=== PATIENT | male | born 1980 | race Caucasian/White ===

== ENCOUNTER 2017-03-09 06:57 | Emergency (ER) | payer MEDICAID ==
[~2017-03-09] VITALS: Wt 78.6 kg
[2017-03-09] MEDS ORDERED: ONDANSETRON (ODT) 4 MG TAB ODT STA (07:55)
[2017-03-09] MEDS ORDERED: HYDROCODONE/APAP (5/325) TAB PO ONE (08:00)
--- NOTE | 2017-03-09 08:59 | RADRPT ---
PROCEDURE: XR Abdomen. CLINICAL INDICATION: Hematuria with flank pain. TECHNIQUE: AP abdomen x-ray. COMPARISON: KUB 06/12/2016. FINDINGS: The bowel gas pattern is normal. There is no evidence of obstruction. There are no abnormal calcific ations overlying the urinary tracts. There are degenerative osteophytes in the lower thoracic spine. . No radiopaque ureterolith nephrolith or bladder stone is identified. An ultrasound or noncontrast CT scan of the abdomen pelvis could be considered for further evaluation. IMPRESSION: 1. Osteoarthritis of the lower thoracic spine. RPTAT:AAJJ Physician Carroll Date Time Electronically viewed and signed by Physician Carroll on 03/09/2017 08:59 SILVIA/
--- NOTE | 2017-03-09 09:15 | ERD ---
ER Documentation Chief Complaint Chief Complaint back pain, small amount blood in urine HPI This is a 36-year-old male who presents the emergency department today complaining of some right-sided back pain for the past several days. Patient states that he saw his primary care doctor at [facility] and was given a prescription for Bactrim, Tylenol with codeine and ibuprofen. States he thinks he had a fever this morning. He has some nausea but no vomiting. She was referred for an x-ray of his stomach but he has not done that yet. States he is here today because he had blood in his urine that started this morning. ROS All systems reviewed and are negative except as per history of present illness. Medications Home Meds Active Scripts Ondansetron Hcl* (Zofran*) 4 Mg Tablet, 4 MG PO Q6H for NAUSEA AND/OR VOMITING, #30 TAB Prov:MARY FRANCIS PA-C 03/09/17 Allergies Allergies: Coded Allergies: No Known Allergy (Unverified , 03/09/17) PMhx/Soc History of Surgery: No Anesthesia Reaction: No Hx Neurological Disorder: No Hx Respiratory Disorders: No Hx Cardiac Disorders: No Hx Psychiatric Problems: No Hx Miscellaneous Medical Probl: Yes (kidney stone/UTI) Hx Alcohol Use: Yes Hx Substance Use: No Hx Tobacco Use: No Smoking Status: Never smoker Physical Exam Vitals Vital Signs Date Time Temp Pulse Resp B/P Pulse Ox O2 Delivery O2 Flow Rate FiO2 03/09/17 06:59 99.2 119 20 142/94 99 Physical Exam Const: NAD Head: Atraumatic Eyes: Normal Conjunctiva ENT: Normal External Ears, Nose and Mouth. Neck: Full range of motion..~ No meningismus. Resp: Clear to auscultation bilaterally Cardio: Regular rate and rhythm, no murmurs Abd: Soft, non tender, non distended. Normal bowel sounds Skin: No petechiae or rashes Back: No midline tenderness. Right sided paraspinal tenderness. No CVA tenderness. Ext: No cyanosis, or edema Neur: Awake and alert Psych: Normal Mood and Affect Results 24 hrs Laboratory Tests Test 03/09/17 08:07 Urine Color DANIEL Urine Clarity CLOUDY Urine pH 6.0 Urine Specific [place] 1.020 Urine Ketones NEGATIVEmg/dL Urine Nitrite NEGATIVEmg/dL Urine Bilirubin NEGATIVEmg/dL Urine Urobilinogen 2+mg/dL Urine Leukocyte Esterase NEGATIVELeu/ul Urine Microscopic RBC > 182/HPF Urine Microscopic WBC > 182/HPF Urine Bacteria FEW/HPF Urine Hemoglobin 3+mg/dL Urine Glucose NEGATIVEmg/dL Urine Total Protein 2+mg/dl Current Medications Medications (Trade) Dose Ordered Sig/Christian Route PRN Reason Start Time Stop Time Status Last Admin Dose Admin Acetaminophen/ Hydrocodone Bitart ([place] (5/325)) 1 tab ONCE ONCE PO 03/09/17 08:00 03/09/17 08:01 DC 03/09/17 08:08 Ondansetron HCl (Zofran Odt) 4 mg ONCE STAT ODT 03/09/17 07:55 03/09/17 07:56 DC 03/09/17 08:08 DIAGNOSTIC IMAGING REPORT Patient: ADDISON SAUNDERS : 1980 Age: 36 Sex: M MR #: [id number] DOS: 03/09/17 0000 Ordering MD: MARY FRANCIS PA-C Location: [facility] Room/Bed: PROCEDURE: XR Abdomen. CLINICAL INDICATION: Hematuria with flank pain. TECHNIQUE: AP abdomen x-ray. COMPARISON: KUB 06/12/2016. FINDINGS: The bowel gas pattern is normal. There is no evidence of obstruction. There are no abnormal calcifications overlying the urinary tracts. There are degenerative osteophytes in the lower thoracic spine.. No radiopaque ureterolith nephrolith or bladder stone is identified. An ultrasound or noncontrast CT scan of the abdomen pelvis could be considered for further evaluation. IMPRESSION: 1. Osteoarthritis of the lower thoracic spine. RPTAT:AAJJ Physician Carroll Date Time Electronically viewed and signed by Physician Carroll on 03/09/2017 08:59 JM/ CC: MARY FRANCIS PA-C Procedures/MDM This is a 36-year-old male who presents the emergency department today complaining of right-sided back pain. Patient indicated that he has a referral for an x-ray of his abdomen which is requesting a KUB. Patient indicated that he was here today because he had blood in his urine. He is afebrile and otherwise well-appearing. He was slightly tachycardic however patient has no CVA tenderness. I did obtain a KUB for the patient as well as a UA KUB shows osteoarthritis of the lower thoracic spine. There are degenerative osteophytes. There is no radiopaque ureterolith, nephrolith or bladder stone identified. UA shows greater than 182 microscopic red blood cells and greater than 182 microscopic white blood cells. Negative leukocyte esterase negative nitrite. Patient is currently taking Bactrim. Urine was sent for culture Was given [place] and Zofran here in the emergency department. He may continue taking his Tylenol with codeine, ibuprofen and Bactrim. I will give him a prescription for Zofran. Symptoms at this time is consistent with right-sided back pain and hematuria there is no evidence of stone on KUB. I have explained this to the patient. I have explained to the patient that they need to follow back up with their clinic for referral to urology specialist. At this time the patient is stable for discharge and outpatient management. Patient should follow up with their PCP in the next 1-2 days. They may return to the emergency department sooner for any persistent or worsening of symptoms. Patient understood and agreed with the plan. Discussed the patient with Dr. Flowers and she is in agreement with the plan. Departure Diagnosis: Primary Impression: Hematuria Hematuria type: unspecified type Qualified Code: R31.9 - Hematuria, unspecified type Additional Impression: Flank pain Condition: Fair MARY FRANCIS PA-C Mar 09, 2017 09:15
[2017-03-09] MEDS ORDERED: ONDA4TAB8 PO (09:57)
== END 2017-03-09 10:05 | disposition home or self-care (01) ==
LOC: FTE 06:57
DX: R31.9 Hematuria, unspecified (principal); R10.9 Unspecified abdominal pain; R11.0 Nausea
CPT/HCPCS: 74000; 81001; 87086; Z7502; Z7610